=== PATIENT | male | born 1985 | race Caucasian/White ===

== ENCOUNTER 2016-12-02 15:03 | Emergency (ER) | payer MEDICAID ==
[~2016-12-02] VITALS: Ht 170.2 cm; Wt 104.3 kg
[2016-12-02 16:31] LABS: CALCIUM 8.6 mg/dL (8.5-10.1); CARBON DIOXIDE 30.5 mmol/L (21-32); CHLORIDE SERUM 104 mmol/L (98-107); CREATININE SERUM 0.8 mg/dL (0.7-1.3); GFR1 > 60 mL/min; GLUCOSE SERUM 106 mg/dL (74-106); POTASSIUM SERUM 3.7 mmol/L (3.5-5.1); SODIUM SERUM 139 mmol/L (136-145)
[2016-12-02 17:37] VITALS: BP 133/89
== END 2016-12-02 17:37 | disposition home or self-care (01) ==
LOC: ED 15:03
PROVIDERS: Emergency Medicine
DX: R42 Dizziness and giddiness (principal); R03.0 Elevated blood-pressure reading, without diagnosis of hypertension
CPT/HCPCS: J8597; Q0162

== ENCOUNTER 2017-04-17 07:29 | Emergency (ER) | payer MEDICAID ==
[2017-04-17 10:48] VITALS: BP 131/89
== END 2017-04-17 10:48 | disposition home or self-care (01) ==
LOC: ED 07:29
DX: M62.830 Muscle spasm of back (principal); R03.0 Elevated blood-pressure reading, without diagnosis of hypertension
CPT/HCPCS: 20552; J2001

== ENCOUNTER 2018-12-29 18:21 | Emergency (ER) | payer MEDICAID ==
[~2018-12-29] VITALS: Ht 167.6 cm; Wt 112.9 kg
[2018-12-29 18:32] VITALS: Ht 167.6 cm; Wt 112.9 kg
[2018-12-29 20:28] VITALS: BP 166/111
== END 2018-12-29 20:28 | disposition home or self-care (01) ==
LOC: ED 18:21
DX: H66.91 Otitis media, unspecified, right ear (principal); H60.91 Unspecified otitis externa, right ear

== ENCOUNTER 2020-07-23 15:18 | Emergency (ER) | payer MEDICAID ==
[~2020-07-23] VITALS: Ht 177.8 cm; Wt 116.2 kg
[2020-07-23 17:26] LABS: PLATELET COUNT 278 x10^3mcL (130-400); RED CELL DISTRIBUTION WIDTH 13.8 % (11.5-14.5)
[2020-07-23 17:39] LABS: BAND NEUTROPHIL 0 % (0-10); BASOPHIL 0 % (0-2); MONOCYTE 6 % (0-7); SEGMENTED NEUTROPHILS 65 % (37-75); rbc morphology (normal/abnorm) NORMAL (NORMAL)
[2020-07-23 17:58] LABS: CARBON DIOXIDE 30.7 mmol/L (21-32); CHLORIDE SERUM 103 mmol/L (98-107); CREATININE SERUM 0.9 mg/dL (0.7-1.3); GFR1 > 60 mL/min; GLUCOSE SERUM 90 mg/dL (74-106); POTASSIUM SERUM 3.7 mmol/L (3.5-5.1); SODIUM SERUM 139 mmol/L (136-145)
[2020-07-23 18:00] VITALS: BP 151/83
[2020-07-23 18:03] LABS: ALBUMIN 3.9 g/dL (3.4-5.0); ALKALINE PHOSPHATASE 147 U/L (46-116); ALT/SGPT 96 U/L (16-63); AST/SGOT 38 U/L (15-37); BILIRUBIN TOTAL 0.4 mg/dL (0.20-1.00); TOTAL PROTEIN, SERUM 7.8 g/dL (6.4-8.2)
== END 2020-07-23 18:45 | disposition home or self-care (01) ==
LOC: ED 15:18
PROVIDERS: Emergency Medicine
DX: R20.0 Anesthesia of skin (principal); R20.2 Paresthesia of skin; M54.2 Cervicalgia; H53.8 Other visual disturbances
CPT/HCPCS: 82962; J0780